=== PATIENT | female | born 1955 | race Caucasian/White ===

== ENCOUNTER 2023-06-06 10:23 | Outpatient (CLI) | payer MEDICARE | END 2023-06-06 10:24 | disposition home or self-care (01) | LOC: CSHMAMMO 10:23 | PROVIDERS: ATTEND Nurse Practitioner Family | DX: Z12.31 Encounter for screening mammogram for malignant neoplasm of breast (principal); Z13.820 Encounter for screening for osteoporosis; M85.851 Other specified disorders of bone density and structure, right thigh; M85.852 Other specified disorders of bone density and structure, left thigh | CPT/HCPCS: 77063; 77067; 77080 ==